=== PATIENT | male | born 1970 | race Caucasian/White ===

== ENCOUNTER 2018-01-27 06:05 | Day surgery (SDC) | payer OTHER ==
[~2018-01-27 06:05] MED LIST: ATORVASTATIN CA40 MG PO; LOSARTAN-HCTZ1 EAC1 PO
== END 2018-01-27 14:38 | disposition home or self-care (01) ==
LOC: CIR.AMB 06:05
DX: H90.72 Mixed conductive and sensorineural hearing loss, unilateral, left ear, with unrestricted hearing on the contralateral side (principal); H80.82 Other otosclerosis, left ear

== ENCOUNTER 2018-03-31 06:35 | Day surgery (SDC) | payer OTHER | END 2018-03-31 13:00 | disposition home or self-care (01) | LOC: CIR.AMB 06:35 | DX: H90.71 Mixed conductive and sensorineural hearing loss, unilateral, right ear, with unrestricted hearing on the contralateral side (principal) ==